=== PATIENT | male | born 1975 | race Caucasian/White ===

== ENCOUNTER → 2021-04-13 09:19 | Day surgery (SDC) | payer OTHER, SELFPAY ==
[2021-04-13 09:44] VITALS: BP 146/85; PULSE 88; RESP 18; TEMP 36.7; O2SAT 98
[2021-04-13 09:45] VITALS: BMI 30.8
[2021-04-13] MEDS: lidocaine 1% INJ 20 mL INTRADERMA (09:50)
--- NOTE | 2021-04-13 10:53 | PC.NURSE ---
1030 Therapeutic phlebotomy completed. 500 grams removed as ordered. Pt tolerated well. No reaction noted. Pt states he is leaving out of town and will not be back until May. Pt will miss weekly phlebotomies as ordered. Dr. Cavazos's office notified.
== END ==
PROVIDERS: Visit Provider Family Medicine
DX: E83.119 Hemochromatosis, unspecified (principal)
CPT/HCPCS: 96372; 99195

== ENCOUNTER → 2021-05-11 09:08 | Day surgery (SDC) | payer OTHER, SELFPAY ==
[2021-05-11 09:35] VITALS: BP 138/84; PULSE 81; RESP 18; TEMP 37.1; O2SAT 98
[2021-05-11 09:44] LABS: Hematocrit 48.1 % (42.0-52.0); Hemoglobin 15.6 g/dL (11.7-16.6)
== END ==
PROVIDERS: PCP Family Medicine; Visit Provider Family Medicine
DX: E83.119 Hemochromatosis, unspecified (principal)
CPT/HCPCS: 36415; 85014; 85018; 99195

== ENCOUNTER 2021-06-01 09:27 | Outpatient (RCR) | payer OTHER, SELFPAY ==
[2021-05-17 07:58] VITALS: BP 153/89; PULSE 83; RESP 18; TEMP 36.6; O2SAT 96
[2021-05-17 08:00] LABS: Hematocrit 48.4 % (42.0-52.0); Hemoglobin 15.7 g/dL (11.7-16.6)
[2021-05-25 09:32] VITALS: BP 139/81; PULSE 104; RESP 18; TEMP 36.8; O2SAT 97
[2021-05-25 09:45] LABS: Hematocrit 44.5 % (42.0-52.0); Hemoglobin 14.5 g/dL (11.7-16.6)
[2021-05-25 10:02] LABS: Ferritin 90 ng/mL (30-400)
[2021-06-01 09:46] VITALS: BP 126/75; PULSE 88; RESP 18; TEMP 37.1; O2SAT 97
[2021-06-01 09:48] LABS: Hematocrit 42.1 % (42.0-52.0); Hemoglobin 13.5 g/dL (11.7-16.6)
== END 2021-06-07 23:59 | disposition home or self-care (01) ==
LOC: GILAB 09:27
PROVIDERS: PCP Family Medicine; Visit Provider Family Medicine
DX: E83.119 Hemochromatosis, unspecified (principal)
CPT/HCPCS: 36415; 82728; 85014; 85018; 99195

== ENCOUNTER 2021-06-08 09:34 | Outpatient (RCR) | payer OTHER, SELFPAY ==
[2021-06-08 10:10] LABS: Hematocrit 41.7 % (42.0-52.0); Hemoglobin 13.3 g/dL (11.7-16.6)
[2021-06-08 10:12] VITALS: BP 134/79; PULSE 83; RESP 18; TEMP 36.9; O2SAT 98
[2021-06-08 10:47] LABS: Ferritin 41 ng/mL (30-400)
--- NOTE | 2021-06-08 10:58 | PC.NURSE ---
Ferritin level noted at 41. Phlebotomy not drawn according to doctor's orders. Dr. Cavazos's office notified.
== END 2021-07-07 23:59 | disposition home or self-care (01) ==
LOC: GILAB 09:34
PROVIDERS: PCP Family Medicine; Visit Provider Family Medicine
DX: E83.119 Hemochromatosis, unspecified (principal)
CPT/HCPCS: 36415; 82728; 85014; 85018

== ENCOUNTER → 2022-09-06 13:44 | Outpatient (BNVA) | payer OTHER, SELFPAY | PROVIDERS: PCP Family Medicine; Visit Provider Family Medicine | DX: Z00.00 Encounter for general adult medical examination without abnormal findings (principal); E83.119 Hemochromatosis, unspecified | CPT/HCPCS: 80053; 80061; 82728; 85025 ==

== ENCOUNTER → 2023-11-20 12:19 | Outpatient (BNVA) | payer OTHER, SELFPAY | PROVIDERS: PCP Family Medicine; Visit Provider Family Medicine | DX: E83.119 Hemochromatosis, unspecified (principal); M19.90 Unspecified osteoarthritis, unspecified site; G62.9 Polyneuropathy, unspecified; Z79.899 Other long term (current) drug therapy | CPT/HCPCS: 80053; 82607; 82728; 83540; 85025 ==

== ENCOUNTER → 2024-08-18 11:12 | Outpatient (BNVA) | payer OTHER, SELFPAY | PROVIDERS: PCP Family Medicine; Visit Provider Family Medicine | DX: F10.10 Alcohol abuse, uncomplicated (principal); E83.119 Hemochromatosis, unspecified; M19.90 Unspecified osteoarthritis, unspecified site; G62.9 Polyneuropathy, unspecified | CPT/HCPCS: 80053; 80061; 82728; 83540; 85025 ==

== ENCOUNTER 2025-08-17 09:20 | Outpatient (CLI) | payer OTHER, SELFPAY ==
--- NOTE | 2025-08-17 09:26 | XR_ITS ---
WS: [id number] Exam: XR hip LT 2-3V wo/w pel* [id number] Date/Time of Exam: 08/17/2025 9:30 AM Reason For Exam: M25.552 - Pain in left hip No fracture noted. Minimal degenerative change of the acetabulum. A 2.5 cm bone lucency with sclerotic margination seen in the femoral head. Normal soft tissues. XR/XR hip LT 2-3V wo/w pel* [id number] IMPRESSION: 1. Minimal DJD. No fracture. 2. Ill-defined lucency with sclerotic margination in the femoral head. This is nonspecific but could represent a bone infarct or atypical bone cyst. If the pa tient does not respond to conservative management, CT of the LEFT hip should be considered for further work-up.
== END 2025-08-17 09:21 | disposition home or self-care (01) ==
LOC: RAD 09:23
PROVIDERS: PCP Family Medicine; Visit Provider Family Medicine
DX: M25.552 Pain in left hip (principal); M89.8X5 Other specified disorders of bone, thigh
CPT/HCPCS: 73502

== ENCOUNTER → 2025-09-21 10:35 | Outpatient (BNVA) | payer OTHER, SELFPAY | PROVIDERS: PCP Family Medicine; Visit Provider Family Medicine | DX: Z00.00 Encounter for general adult medical examination without abnormal findings (principal); E83.119 Hemochromatosis, unspecified; E03.9 Hypothyroidism, unspecified | CPT/HCPCS: 80053; 80061; 82306; 82607; 82728; 83540; 84443; 85025 ==

== ENCOUNTER 2025-10-02 08:24 | Outpatient (CLI) | payer SELFPAY ==
--- NOTE | 2025-10-02 08:30 | CT_ITS ---
WS: [id number] CT LEFT HIP, NONCONTRAST HISTORY: Abnormality noted radiographically. Technique: All CT scans at [facility] use at least one of these dose optimization techniques: automated exposure control; mA and/or kV adjustment per patient size (includes targeted exams where dose is matched to clinical indication); or iterative reconstruction. DLP: 589.44 mGy.cm COMPARISON: Radiograph 08/17/2025. Mixed sclerotic and lytic disease involving the femoral head with sclerotic margins. This is consistent with osteonecrosis. There is irregularity along the cortical surface but no significant collapse at this time. There is very slight narrowing of the joint space. No bone or calcific fragments within the joint. No additional lytic or sclerotic lesions are identified involving the LEFT hip. There is a small joint effusion or synovial hypertrophy surrounding the hip. There is an area of decreased attenuation within the LEFT vastus lateralis muscle extending over a length of 4.3 cm. Incompletely included on this exam as it extends into the mid thigh. Transverse diameter is approximately 1.3 cm. This may be related to prior trauma with edema or resolving hematoma. Neoplasm is not excluded. No adenopathy. Soft tissue calcifications in the posterior upper thigh. Muscle contusion or some edema. CT/CT hip LT wo con* [id number] IMPRESSION: 1. Focal area of osteonecrosis in the femoral head corresponds to the radiogra phic finding. No collapse of the femoral head at this time. 2. Incompletely visualized area of decreased attenuation in the vastus lateral is muscle. This collection extends over a length of 4.3 cm x 1.3 cm. May be a s mall amount of fluid or resolving hematoma. This can be further evaluated by MR I with and without contrast. This collection begins approximately 9 cm distal t o the greater trochanter.
== END 2025-10-02 08:25 | disposition home or self-care (01) ==
PROVIDERS: PCP Family Medicine; Visit Provider Family Medicine
DX: M87.9 Osteonecrosis, unspecified (principal)
CPT/HCPCS: 73700